=== PATIENT | male | born 1960 | race Hispanic/Latino ===

== ENCOUNTER 2018-05-15 15:18 | Emergency (ER) | payer BC ==
[~2018-05-15] VITALS: Ht 175.3 cm; Wt 111.1 kg
[~2018-05-15 15:18] MED LIST: ATORVASTATIN CA40 MG PO; FLAGYL500 MG PO; Farxiga PO; GLIMEPIRIDE1 MG PO; IMODIUM2 MG PO; LEVAQUIN500 MG PO; LOSARTAN POTASS50 MG PO; OMEPRAZOLE40 MG PO; PEPCID20 MG PO
[2018-05-15] MEDS ORDERED: CLINDAMYCIN HC300 MG PO (16:49)
[2018-05-15 17:19] VITALS: BP 153/93
== END 2018-05-15 17:20 | disposition home or self-care (01) ==
LOC: ER 16:23
DX: L03.811 Cellulitis of head [any part, except face] (principal); I10 Essential (primary) hypertension; E11.9 Type 2 diabetes mellitus without complications; E78.5 Hyperlipidemia, unspecified
CPT/HCPCS: 99282